=== PATIENT | male | born 1955 | race Caucasian/White ===

== ENCOUNTER 2019-03-16 06:35 | Outpatient (CLI) | payer OTHER ==
[2019-03-16 10:01] LABS: #Basophils 0.1 thou/uL (0.0-0.2); #Eosinphils 0.3 thou/uL (0.0-0.7); #Lymphocytes 1.7 thou/uL (1.20-3.40); #Monocytes 0.5 thou/uL (0.11-0.59); #Neutrophils 4.1 thou/uL (1.40-6.50); %Basophils 1.1 % (0.0-1.0); %Eosinophils 3.9 % (0.0-10.0); %Lymphocytes 25.2 % (21.0-51.0); %Monocytes 7.7 % (0.0-10.0); Hemoglobin 15.5 g/dL (14.0-18.0); Mean Corpuscular HGB CONC 33.5 g/dL (32.0-36.0); Mean Corpuscular Hemoglobin 30.4 pg (27.0-31.0); Mean Corpuscular Volume 90.7 fL (78.0-98.0); Mean Platelet Volume 8.2 fL (7.4-10.4); Platelet Count 183 thou/uL (130-400); RBC Distribution Width 11.5 % (11.5-14.5); White Blood Cell (WBC) Count 6.6 thou/uL (4.8-10.8)
[2019-03-16 10:16] LABS: Bacteria/HPF None Seen HPF (None Seen); Bilirubin Negative (Negative); Blood, Urine 1+ (Negative); Clarity Clear (Clear); Glucose, Urine (Dipstick) Normal (Negative); Leukocyte Negative Leu/uL (Negative); Nitrite Negative (Negative); Protein, Urine (Dipstick) 10 mg/dL (Neg-Trace); RBC/HPF 0-3 HPF (0-3); Squamous Epithelial None Seen HPF (0-3); Urobilinogen Normal mg/dL (Less than 2); WBC/HPF 0-3 HPF (0-3)
[2019-03-16 10:22] LABS: Anion Gap 11 mmol/L (10-20); BUN (Urea Nitrogen) 17 mg/dL (8.4-25.7); Calc. Creatinine Clearance 0 mL/min (70-130); Calcium 9.4 mg/dL (7.8-10.44); Carbon Dioxide 29 mmol/L (23-31); Chloride 105 mmol/L (98-107); Estimated GFR-MDRD 70; Glucose 99 mg/dL (80-115); Potassium 4.3 mmol/L (3.5-5.1); Sodium 141 mmol/L (136-145)
[2019-03-16 10:31] LABS: Prothrombin Time 12.7 SEC (12.0-14.7)
== END 2019-03-16 06:36 | disposition home or self-care (01) ==
LOC: LABBT 06:35
PROVIDERS: ATTEND Orthopaedic Surgery
DX: Z01.818 Encounter for other preprocedural examination (principal); M17.11 Unilateral primary osteoarthritis, right knee
CPT/HCPCS: 80048; 81001; 85025; 85610; 87081; 93005; 93010

== ENCOUNTER 2019-03-27 05:29 | Day surgery (SDC) | payer OTHER ==
[2019-03-16 08:44] VITALS: BMI 25.9
--- NOTE | 2019-03-23 08:27 | HP ---
HISTORY OF PRESENT ILLNESS: The patient is a 63-year-old male with a several year history of progressive problems with the right knee without specific injury. He has weightbearing pain, which is worse with activities and this persisted despite rest, restriction of activities, anti-inflammatory medications, and previous cortisone injection. The pain is interfering with day-to-day activities including walking, getting dressed, and sleeping. PAST SOCIAL HISTORY: The patient is retired from the [employer]. He is otherwise in good health. He has a history of enlarged prostate and allergic rhinitis. CURRENT MEDICATIONS: Include; 1. Finasteride. 2. Flomax. 3. Naproxen. ALLERGIES: HE HAS NO KNOWN ALLERGIES. FAMILY HISTORY: Otherwise, unremarkable. SOCIAL HISTORY: Otherwise, unremarkable. REVIEW OF SYSTEMS: Otherwise, unremarkable. PHYSICAL EXAMINATION: GENERAL: Reveals a healthy male. HEENT: Unremarkable. NECK: Supple. CHEST: Clear. HEART: Regular rate and rhythm. ABDOMEN: Soft and nontender. RECTAL: Deferred. GENITAL: Deferred. EXTREMITIES: Pertinent findings related to the right knee, there is no definite effusion. There is a palpable Keene's cyst. There is mild varus deformity. There is tenderness and crepitus over the medial joint line. Range of motion is 10 to 115 degrees. There is a right antalgic gait. Pulses are 2+. Neurovascular exam is intact. 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 IMPRESSION: Degenerative arthritis, right knee. PLAN: Right total knee replacement. The nature of the surgery, length of recovery, and potential complications such as infection, loss of motion, incomplete relief, delayed wound healing, neurovascular injury, thromboembolic phenomena, possible transfusion, need for revision have been discussed in detail. Job ID: [id number]
[2019-03-27] MEDS ORDERED: Sodium Chloride 0.9% 100 ML ONE (06:10)
[2019-03-27] MEDS ORDERED: HYDROcodone/Acetaminophen 10/325 mg Tablet ONE (06:10)
[2019-03-27] MEDS ORDERED: Fentanyl 100 MCG/2 ML VIAL ONE ×3 (06:11→09:38)
[2019-03-27] MEDS ORDERED: Tranexamic Acid 1,000 MG/10 ML VIAL ONE ×2 (06:11→09:09)
[2019-03-27] MEDS ORDERED: Vancomycin 1.5 GRAM/300 ML BAG 1.5 GM/300 ML BAG ONE (06:12)
[2019-03-27] MEDS ORDERED: Midazolam HCl 2 mg/2 ml Vial ONE (06:19)
[2019-03-27] MEDS ORDERED: Bupivacaine 0.25% HCL 30 ML VIAL ONE (06:47)
[2019-03-27] MEDS ORDERED: Lidocaine 0.5%/Epinephrine 1:200,000 50 ml Vial ONE (06:47)
[2019-03-27] MEDS ORDERED: Lidocaine 1% w/Epinephrine 1:100K 20 ML VIAL ONE (06:50)
[2019-03-27] MEDS ORDERED: Ropivacaine HCl/PF 250 ML in Premix Bag 1 BAG NERVE BLCK SCH (07:54)
[2019-03-27] MEDS ORDERED: Ondansetron PF 4 MG/2 ML Vial IVP PRN ×2 (07:54→09:34)
[2019-03-27] MEDS ORDERED: traMADol HCl 50 MG TAB PO PRN ×2 (07:54→09:34)
[2019-03-27] MEDS ORDERED: Zolpidem Tartrate 5 MG TAB PO PRN ×2 (07:54→09:34)
[2019-03-27] MEDS ORDERED: HYDROcodone/Acetaminophen 10/325 mg Tablet PO PRN ×4 (07:54→09:34)
[2019-03-27] MEDS ORDERED: Acetaminophen 325 MG TAB PO PRN ×2 (07:54→09:34)
[2019-03-27] MEDS ORDERED: Promethazine HCl 25 MG/ML VIAL IM PRN (07:54)
[2019-03-27] MEDS ORDERED: Fentanyl 100 MCG/2 ML VIAL SLOW IVP PRN ×3 (07:55→09:34)
[2019-03-27] MEDS ORDERED: Tranexamic Acid 1,000 MG in Sodium Chloride 0.9% 100 ML IVPB SCH ×2 (09:15→09:34)
[2019-03-27] MEDS ORDERED: diphenhydrAMINE 25 MG CAP PO PRN (09:34)
[2019-03-27] MEDS ORDERED: Promethazine HCl 25 MG/ML VIAL SLOW IVP PRN (09:34)
[2019-03-27] MEDS ORDERED: Aspirin 81 mg Enteric Coated Tablet PO SCH (09:45)
--- NOTE | 2019-03-27 09:53 | OP ---
DATE OF PROCEDURE: 03/27/2019 ELECTRICAL TRANSMISSION ENGINEER: Fabian Webster PA-C ANESTHESIA: General plus adductor canal and sciatic nerve blocks. PREOPERATIVE DIAGNOSIS: Degenerative arthritis, right knee. POSTOPERATIVE DIAGNOSIS: Degenerative arthritis, right knee. PROCEDURE PERFORMED: Right total knee replacement with computer-assisted navigation with cemented Wallace Triathlon components (#5 femoral component, #5 primary tibial baseplate with 11-mm CS plastic insert, and A32 all-plastic patellar component). DESCRIPTION OF PROCEDURE: After satisfactory anesthesia was induced in supine position, sequential compression device was placed on the nonoperative leg throughout the procedure. The right leg was prepped and draped in routine manner. The leg was elevated and exsanguinated with an Esmarch bandage and the tourniquet inflated to 250 mmHg. A gently curved medial parapatellar incision was made carried down through the subcutaneous tissues and bleeding points were controlled with the Bovie cautery. The medial parapatellar arthrotomy was performed. Patella was dislocated laterally and portions of the fat pad were excised for exposure. There was marked degenerative arthritis of the knee especially medially with large areas of exposed bone. Meniscal remnants and osteophytes were removed. Using the [employer] pinless navigation system and the appropriate guides, the distal femoral and proximal tibial articular surfaces were excised with an oscillating saw to accept the trial components. It was felt that #5 femoral component, #5 tibial baseplate with 11 mm CS plastic insert gave appropriate size, fit, stability, and correction of the preoperative deformity. The patellar articular surface was excised to accept all-plastic A32 patellar component. The trial components were removed. The knee was copiously irrigated with pulsatile lavage. The bony surfaces were thoroughly cleaned and dried. The permanent components were then cemented in a single stage using one package of cement premixed with 1 g of tobramycin powder. Excess cement was removed. There was again good fit and stability of the components. The knee was copiously irrigated. The medial retinaculum and quadriceps mechanism were closed with interrupted #2 Vicryl and a running #2 Quill. The skin and subcutaneous tissues were injected with a mixture of 30 mL of 0.25% Marcaine and 20 mL of 1% lidocaine with epinephrine. Subcutaneous tissues were closed with a running 0 Quill suture. The skin closed with running subcuticular 3-0 Monoderm and SurgiSeal skin adhesive. A sterile bulky compressive dressing was applied and the tourniquet deflated after 71 minutes. The foot promptly pinked up. Sequential compression devices were placed on his upper leg. He was awakened and taken to the recovery room in stable condition. There were no apparent intraoperative complications. ESTIMATED BLOOD LOSS: Less than 100 mL. Job ID: [id number]
[2019-03-27] MEDS ORDERED: ePHEDrine/0.9% NaCl/PF SYRINGE 50 mg/10 ml ONE (09:55)
[2019-03-27] MEDS ORDERED: Dexamethasone 20 MG/5 ML VIAL ONE (09:55)
[2019-03-27] MEDS ORDERED: PROPOFOL 200 MG/20 ML VIAL ONE (09:55)
[2019-03-27] MEDS ORDERED: PHENYLEPHRINE-NS 100 MCG/ML 10 ML SYRINGE ONE (09:55)
[2019-03-27] MEDS ORDERED: Lidocaine 1% PF 5 ML VIAL ONE (09:55)
[2019-03-27] MEDS ORDERED: Bupivacaine HCl 0.5%/Epinephrine 1:200,000/PF 30 ml Vial ONE (09:56)
[2019-03-27] MEDS ORDERED: Ropivacaine 0.2% HCl/PF (40 MG/20 ML VIAL) ONE (09:56)
[2019-03-27] MEDS: Sodium Chloride 0.9% 1,000 ML IV SCH ×2 (10:41→20:06)
--- NOTE | 2019-03-27 10:44 | RAD ---
RIGHT KNEE 2 VIEWS: Date: 03/27/2019 HISTORY: Recent total knee arthroplasty. FINDINGS/IMPRESSION: Unremarkable recent total knee arthroplasty changes are noted. No dislocation or periprosthetic fract ure. POS: [facility]
[2019-03-27] MEDS: Ketorolac Tromethamine 30 MG/ML VIAL IVP SCH ×3 (11:48→23:27)
[2019-03-27] MEDS ORDERED: Ketorolac Tromethamine 30 MG/ML VIAL IVP SCH (12:00)
[2019-03-27] MEDS: CEFAZOLIN 2 GM in Premix Bag 1 BAG IVPB SCH ×2 (14:30→21:12)
[2019-03-27] MEDS ORDERED: Vancomycin 1.5 GRAM/300 ML BAG 1.5 GM in Premix Bag 1 BAG IVPB SCH (18:00)
[2019-03-27] MEDS: Tamsulosin HCl 0.4 MG CAP PO SCH (20:31)
[2019-03-27] MEDS: Finasteride 5 MG TAB PO SCH (20:31)
[2019-03-27] MEDS: Aspirin 81 mg Enteric Coated Tablet PO SCH (20:31)
[2019-03-28 05:10] LABS: Hemoglobin 12.7 g/dL (14.0-18.0); Mean Corpuscular HGB CONC 33.1 g/dL (32.0-36.0); Mean Corpuscular Volume 90.7 fL (78.0-98.0); Mean Platelet Volume 8.2 fL (7.4-10.4); Platelet Count 166 thou/uL (130-400); RBC Distribution Width 11.6 % (11.5-14.5); Red Blood Cell (RBC) Count 4.23 mill/uL (4.70-6.10); White Blood Cell (WBC) Count 10.8 thou/uL (4.8-10.8)
[2019-03-28] MEDS: Ketorolac Tromethamine 30 MG/ML VIAL IVP SCH ×4 (05:52→23:45)
[2019-03-28] MEDS: Sodium Chloride 0.9% 1,000 ML IV SCH ×2 (06:53→15:00)
[2019-03-28] MEDS: Aspirin 81 mg Enteric Coated Tablet PO SCH ×2 (08:36→20:52)
[2019-03-28] MEDS: Multivitamin W/ Minerals 1 TAB PO SCH (08:36)
[2019-03-28] MEDS: traMADol HCl 50 MG TAB PO PRN (08:37)
[2019-03-28] MEDS: Senokot S 8.6-50 MG TAB PO SCH ×2 (08:37→20:52)
--- NOTE | 2019-03-28 09:32 | PRG ---
DATE OF SERVICE: 03/28/2019 SUBJECTIVE: Jaylon is a 63-year-old male, postop day 1 from right total knee arthroplasty. He is doing relatively well. His pain controlled. OBJECTIVE: VITAL SIGNS: Temperature 98.2, pulse 78, respiratory rate 18 and nonlabored, and blood pressure is 120/68. GENERAL: He is alert and oriented to person, place, time, and situation. Responsive and appropriate with examiner. EXTREMITIES: Incision is clean. No strike through. No erythema and he is neurovascularly intact in right lower extremity. LABORATORY DATA: Hemoglobin and hematocrit 12.7 and 38.4. IMPRESSION: A 63-year-old male, postop day 1, right total knee arthroplasty, doing well. PLAN: Continue current care. Probable discharge to home tomorrow. Job ID: [id number]
[2019-03-28] MEDS: Tamsulosin HCl 0.4 MG CAP PO SCH (20:52)
[2019-03-28] MEDS: Finasteride 5 MG TAB PO SCH (20:52)
[2019-03-29] MEDS: Sodium Chloride 0.9% 1,000 ML IV SCH ×2 (01:51→10:53)
[2019-03-29] MEDS: Ketorolac Tromethamine 30 MG/ML VIAL IVP SCH (06:14)
[2019-03-29] MEDS: Aspirin 81 mg Enteric Coated Tablet PO SCH (08:24)
[2019-03-29] MEDS: Senokot S 8.6-50 MG TAB PO SCH (08:24)
[2019-03-29] MEDS: Multivitamin W/ Minerals 1 TAB PO SCH (08:24)
[2019-03-29] MEDS: traMADol HCl 50 MG TAB PO PRN (08:26)
[2019-03-29 11:38] VITALS: BP 123/72; TEMP 97.8
== END 2019-03-29 11:32 | disposition home or self-care (01) ==
LOC: UNDOADMIN 05:29 → SJJU 05:29 → SDC 05:29 → EDSTATUS 08:45 → SJJU 10:04 → UNDODISIN 03-29 11:30 → SDC 03-29 11:32
PROVIDERS: ATTEND Orthopaedic Surgery
PROC: 0SRC0J9 Replacement of Right Knee Joint with Synthetic Substitute, Cemented, Open Approach (ICD-10-PCS; principal; 2019-03-27)
PROC: 3E0T3BZ Introduction of Anesthetic Agent into Peripheral Nerves and Plexi, Percutaneous Approach (ICD-10-PCS; 2019-03-27)
PROC: 8E0YXBZ Computer Assisted Procedure of Lower Extremity (ICD-10-PCS; 2019-03-27)
DX: M17.11 Unilateral primary osteoarthritis, right knee (principal); M71.21 Synovial cyst of popliteal space [Baker], right knee; G89.18 Other acute postprocedural pain; N40.0 Benign prostatic hyperplasia without lower urinary tract symptoms; J30.9 Allergic rhinitis, unspecified; Z79.899 Other long term (current) drug therapy
CPT/HCPCS: 36415; 85027; C1713; C1776; J0670; J0690; J1100; J1885; J2001; J2250; J2704; J2795; J3010; J3490; S0020

== ENCOUNTER 2022-10-02 12:27 | Outpatient (CLI) | payer OTHER | END 2022-10-02 12:28 | disposition home or self-care (01) | LOC: BICCT 12:27 | DX: J01.90 Acute sinusitis, unspecified (principal); J34.89 Other specified disorders of nose and nasal sinuses ==